=== PATIENT | male | born 1985 | race Caucasian/White ===

== ENCOUNTER 2018-06-21 19:08 | Emergency (ER) | payer SELFPAY ==
[~2018-06-21] VITALS: Ht 190.5 cm; Wt 127.0 kg
[2018-06-21] MEDS ORDERED: DEXAMETHASONE SOD PHOS 10 MG/ML VIAL IV ONE (19:30)
[2018-06-21] MEDS ORDERED: KETOROLAC 30 MG/ML VIAL. IV ONE (19:30)
[2018-06-21] MEDS ORDERED: FAMOTIDINE 20 MG/2 ML VIAL IVP ONE (19:30)
[2018-06-21] MEDS ORDERED: IV NORMAL SALINE 1,000ML 1,000 ML IV ONE (19:30)
[2018-06-21 19:59] LABS: BASO # 0.1 x10^3/uL (0.0-0.2); BASO % 1 % (0-3); EOS # 1.9 x10^3/uL (0.0-0.7); EOS % 15 % (0-3); HEMATOCRIT 37.4 % (39.0-53.0); HEMOGLOBIN 12.8 g/dL (13.0-17.5); LYMPH % 23 % (24-48); MEAN CORPUSCULAR HEMOGLOBIN 27 pg (25-35); MEAN CORPUSCULAR HGB CONC 34 g/dL (31-37); MEAN CORPUSCULAR VOLUME 80 fL (79-100); MONO # 0.8 x10^3/uL (0.0-1.1); MONO % 6 % (0-9); NEUT # 7.2 x10^3uL (1.8-7.7); NEUT % 55 % (31-73); PLATELET COUNT 498 x10^3/uL (140-400); RED BLOOD COUNT 4.66 x10^6/uL (4.30-5.70); RED CELL DISTRIBUTION WIDTH 13.4 % (11.5-14.5)
[2018-06-21 20:20] LABS: ALBUMIN 3.5 g/dL (3.4-5.0); CREATININE 0.9 mg/dL (0.7-1.3); GFR 97.8; MAGNESIUM 2.2 mg/dL (1.8-2.4); TOTAL BILIRUBIN 0.6 mg/dL (0.2-1.0)
[2018-06-21 20:42] LABS: ALBUMIN/GLOBULIN RATIO 0.9 (1.0-1.7); CALCIUM 8.6 mg/dL (8.5-10.1); TOTAL PROTEIN 7.5 g/dL (6.4-8.2)
[2018-06-21 20:45] LABS: BACTERIA,URINE 0 /HPF (0-FEW); BILIRUBIN,URINE NEG (NEG); CLARITY,URINE CLEAR; COLOR,URINE AMBER; GLUCOSE,URINE NEG (NEG); NITRITE,URINE NEG (NEG); RBC,URINE 0 /HPF (0-2); UROBILINOGEN,URINE 1 mg/dL (0.2 mg/dL); WBC,URINE 0 /HPF (0-4)
[2018-06-21] MEDS ORDERED: PRED20TA PO (21:13)
[2018-06-21] MEDS ORDERED: HYOS0.1265 SL (21:13)
--- NOTE | 2018-06-21 21:13 | PHYS DOC ---
Past History Past Medical History: Other Additional Past Medical Histor: ulcerative colitis Past Surgical History: No Surgical History Additional Smoking Information: chewing tobacco Alcohol Use: None Drug Use: None Adult General Chief Complaint Chief Complaint: ABDOMINAL PAIN HPI HPI 32-year-old male presents with report of 1 week history of progressive lower abdominal pain. Patient reports past medical history of ulcerative colitis. Patient reports he also noted some "bloody stools today ". Denies fever or chills. Denies known trauma. Denies known sick contacts. Patient reports he currently does not have insurance and therefore is not taking any preventative medication at this time. Denies fever or chills. Denies known trauma. Review of Systems Review of Systems Constitutional: Denies fever or chills [] Eyes: Denies change in visual acuity, redness, or eye pain [] HENT: Denies nasal congestion or sore throat [] Respiratory: Denies cough or shortness of breath [] Cardiovascular: Denies chest pain or palpitations GI: Reports abdominal pain, nausea, and bloody stools : Denies dysuria or hematuria [] Musculoskeletal: Denies back pain or joint pain [] Integument: Denies rash or skin lesions [] Neurologic: Denies headache, focal weakness or sensory changes [] Complete systems were reviewed and found to be within normal limits, except as documented in this note. Current Medications Current Medications Current Medications Medications (Trade) Dose Ordered Sig/Donya Start Time Stop Time Status Last Admin Dose Admin Dexamethasone Sodium Phosphate (Decadron) 10 mg 1X ONCE 06/21/18 19:30 06/21/18 19:59 DC 06/21/18 19:30 10 MG Famotidine (Pepcid Vial) 20 mg 1X ONCE 06/21/18 19:30 06/21/18 19:59 DC 06/21/18 19:51 20 MG Ketorolac Tromethamine (Toradol 30mg Vial) 30 mg 1X ONCE 06/21/18 19:30 06/21/18 19:59 DC 06/21/18 19:51 30 MG Sodium Chloride 1,000 ml @ 1,000 mls/hr 1X ONCE 06/21/18 19:30 06/21/18 20:29 DC 06/21/18 19:50 1,000 MLS/HR Allergies Allergies Allergies Coded Allergies Type Severity Reaction Last Updated Verified No Known Allergies Allergy Unknown 06/21/18 Yes Physical Exam Physical Exam Constitutional: Well developed, well nourished, no acute distress, non-toxic appearance. [] HENT: Normocephalic, atraumatic, oropharynx moist Eyes: Conjunctiva normal, no discharge. [] Neck: Normal range of motion, no tenderness, supple Cardiovascular: Heart rate regular rhythm, no murmur [] Lungs & Thorax: Bilateral breath sounds clear to auscultation [] Abdomen: Soft, non-tenderness Skin: Warm, dry, no erythema, no rash. [] Back: No tenderness, no CVA tenderness. [] Extremities: No tenderness,ROM intact, no edema. [] Neurologic: Alert and oriented X 3, no focal deficits noted. [] Psychologic: Affect normal, judgement normal, mood normal. [] Current Patient Data Vital Signs Vital Signs Date Time Temp Pulse Resp B/P (MAP) Pulse Ox O2 Delivery O2 Flow Rate FiO2 06/21/18 19:18 97.6 95 20 99 Room Air Lab Results Laboratory Tests Test 06/21/18 19:37 06/21/18 20:09 06/21/18 20:26 White Blood Count 13.0 x10^3/uL (4.0-11.0) H Red Blood Count 4.66 x10^6/uL (4.30-5.70) Hemoglobin 12.8 g/dL (13.0-17.5) L Hematocrit 37.4 % (39.0-53.0) L Mean Corpuscular Volume 80 fL (79-100) Mean Corpuscular Hemoglobin 27 pg (25-35) Mean Corpuscular Hemoglobin Concent 34 g/dL (31-37) Red Cell Distribution Width 13.4 % (11.5-14.5) Platelet Count 498 x10^3/uL (140-400) H Neutrophils (%) (Auto) 55 % (31-73) Lymphocytes (%) (Auto) 23 % (24-48) L Monocytes (%) (Auto) 6 % (0-9) Eosinophils (%) (Auto) 15 % (0-3) H Basophils (%) (Auto) 1 % (0-3) Neutrophils # (Auto) 7.2 x10^3uL (1.8-7.7) Lymphocytes # (Auto) 3.0 x10^3/uL (1.0-4.8) Monocytes # (Auto) 0.8 x10^3/uL (0.0-1.1) Eosinophils # (Auto) 1.9 x10^3/uL (0.0-0.7) H Basophils # (Auto) 0.1 x10^3/uL (0.0-0.2) Sodium Level 140 mmol/L (136-145) Potassium Level 4.0 mmol/L (3.5-5.1) Chloride Level 104 mmol/L (98-107) Carbon Dioxide Level 22 mmol/L (21-32) Anion Gap 14 (6-14) Blood Urea Nitrogen 15 mg/dL (8-26) Creatinine 0.9 mg/dL (0.7-1.3) Estimated GFR (Cockcroft-Gault) 97.8 BUN/Creatinine Ratio 17 (6-20) Glucose Level 132 mg/dL (70-99) H Calcium Level 8.6 mg/dL (8.5-10.1) Magnesium Level 2.2 mg/dL (1.8-2.4) Total Bilirubin 0.6 mg/dL (0.2-1.0) Aspartate Amino Transferase (AST) 27 U/L (15-37) Alanine Aminotransferase (ALT) 36 U/L (16-63) Alkaline Phosphatase 99 U/L (46-116) Total Protein 7.5 g/dL (6.4-8.2) Albumin 3.5 g/dL (3.4-5.0) Albumin/Globulin Ratio 0.9 (1.0-1.7) L Lipase 74 U/L (73-393) Lactic Acid Level 0.9 mmol/L (0.4-2.0) Urine Collection Type Unknown Urine Color Kerri Urine Clarity Clear Urine pH 6.0 Urine Specific [place] >=1.030 Urine Protein Neg (NEG-TRACE) Urine Glucose (UA) Neg mg/dL (NEG) Urine Ketones (Stick) Trace mg/dL (NEG) Urine Blood Neg (NEG) Urine Nitrite Neg (NEG) Urine Bilirubin Neg (NEG) Urine Urobilinogen Dipstick 1 mg/dL (0.2 mg/dL) Urine Leukocyte Esterase Neg (NEG) Urine RBC 0 /HPF (0-2) Urine WBC 0 /HPF (0-4) Urine Squamous Epithelial Cells None /LPF Urine Bacteria 0 /HPF (0-FEW) EKG EKG [] Radiology/Procedures Radiology/Procedures [] Course & Med Decision Making Course & Med Decision Making Pertinent Lab studies reviewed. (See chart for details) Patient with pmh of Ulcerative colitis presents with HPI and physical exam concerning for possible ulcerative colitis flare. Denies trauma. Abdomen non- peritoneal. IVF hydration given. Symptomatic treatment provided. Patient stable for discharge with outpatient follow-up with PCP/Gi. GI referral given. Discussed findings and plan with patient and family, who acknowledge understanding and agreement. Dragon Disclaimer Dragon Disclaimer This electronic medical record was generated, in whole or in part, using a voice recognition dictation system. Departure Departure: Impression: Primary Impression: Acute ulcerative colitis Disposition: HOME, SELF-CARE Condition: STABLE Referrals: PCPJOEL (PCP) Patient Instructions: Ulcerative Colitis Scripts Hyoscyamine Sulfate (LEVSIN-SL) 0.125 Mg Tab.subl 1-2 TAB SL PRN Q4HRS PRN for PAIN, #20 TAB 0 Refills Prov: AMELIA DOMINGUEZ DO 06/21/18 Prednisone (PREDNISONE) 20 Mg Tablet 1 TAB PO DAILY for Colitis, #8 TAB Start this prescription tomorrow, Friday06/22/18. Prov: AMELIA DOMINGUEZ DO 06/21/18 Problem Qualifiers Primary Impression: Acute ulcerative colitis Digestive disease complication type: unspecified complication Qualified Codes : K51.919 - Ulcerative colitis, unspecified with unspecified complications AMELIA DOMINGUEZ DO Jun 21, 2018 21:13
[2018-06-21 21:15] VITALS: BP 137/88
== END 2018-06-21 21:22 | disposition home or self-care (01) ==
LOC: ER 19:08
DX: K51.80 Other ulcerative colitis without complications (principal); F17.220 Nicotine dependence, chewing tobacco, uncomplicated
CPT/HCPCS: 36415; 80053; 81001; 83605; 83690; 83735; 85025; 96374; 96375; 99283; J1100; J1885; J3490; 96361; J7030